=== PATIENT | male | born 2000 | race Two or more races ===

== ENCOUNTER 2023-06-18 13:32 | Emergency (ER) | payer BC, OTHER ==
[~2023-06-18] VITALS: Ht 188 cm; Wt 91.0 kg
[2023-06-18 13:56] VITALS: TEMP 98.5
[2023-06-18 16:35] VITALS: BP 157/97; PULSE 88; RESP 16; O2SAT 97
[2023-06-18] MEDS: NEOMYCIN-BACITRACIN-POLYM UNITDOSE PKG TOP OINT TOP ONE (17:34)
== END 2023-06-18 17:40 | disposition home or self-care (01) ==
LOC: ER 13:32 → EDBD 13:32 → ER 17:40
DX: S50.811A Abrasion of right forearm, initial encounter (principal); V43.52XA Car driver injured in collision with other type car in traffic accident, initial encounter; Y93.89 Activity, other specified; Y92.488 Other paved roadways as the place of occurrence of the external cause; Y99.8 Other external cause status
CPT/HCPCS: 73090